=== PATIENT | male | born 1960 | race Caucasian/White ===

== ENCOUNTER → 2018-05-08 | Outpatient (CLI) | payer OTHER ==
[~2018-05-08] MED LIST: ABILIFY PO; ADVAIR 250-501 EACH IH; ADVAIR 500-501 EACH IH; ALBUTEROL NEB; ALLEGRA180 MG PO; AUGMENTIN 875875 MG PO; BENZTROPINE MES1 MG PO; CALCIUM500 MG PO; CLONAZEPAM PO; DESYREL100 MG PO; EPIPEN0.3 MG/0.3; FISH OIL500 MG PO; FLONASE 0.05%50 MCG NASAL; FLONASE NS; GEMFIBROZIL 60600 MG PO; GLUCOPHAGE XR500 MG PO; HYDROCODON-ACE1 EA11 PO; HYDROXYCHLOROQ200 M1 PO; INDOMETHACIN 2525 MG PO; LEXAPRO 10 MG T10 MG PO; LIDODERM 5%1 PATCH TOP; MOBIC15 MG PO; NAPROSYN500 MG PO; NEXIUM PO; NEXIUM40 MG PO; NIASPAN 500 MG500 M1 PO; NORCO 5-325 TA1 EACH PO; PERCOCET 5-3251 EACH PO; PREDNISONE 10 M10 MG PO; SINGULAIR 10 MG10 M1 PO; ULTRAM 50MG TAB50 MG PO; VITAMIN B COMP1 EACH PO; VITAMIN D1000 UNI1 PO; VITAMINC500 PO; XOLAIR SUBQ; XOPENEX HF1 UDINHALE; XOPENEX HF1 UDINHALE IH
[2018-05-08 10:17] LABS: ABSOLUTE NEUTROPHILS 3.7 thou/uL (1.4-8.2); BASOPHILS 0.9 % (0.0-2.0); EOSINOPHILS 2.5 % (0.0-3.0); HEMATOCRIT 45.6 % (42.0-52.0); HEMOGLOBIN 15.6 gm/dL (14.0-18.0); LYMPHOCYTES 28.2 % (24.0-44.0); MCH 30.8 pg (26.0-34.0); MCHC 34.2 g/dL (28.0-37.0); MCV 90.1 fL (80.0-100.0); MONOCYTES 6.8 % (1.0-8.0); PLATELET COUNT 169 thou/uL (150-400); POLYS 61.6 % (36.0-66.0); RBC 5.07 mil/uL (4.50-6.00); RDW 15.1 % (10.5-14.5)
== END ==
LOC: LAB 09:40
PROVIDERS: Internal Medicine
DX: G47.33 Obstructive sleep apnea (adult) (pediatric) (principal); R07.81 Pleurodynia